=== PATIENT | male | born 1985 | race Hispanic/Latino ===

== ENCOUNTER 2021-12-19 20:17 | Inpatient (IN) | payer BC ==
[~2021-12-19] VITALS: Ht 175.3 cm; Wt 106.5 kg
[2021-12-19] MEDS ORDERED: LORAZEPAM 2 MG/ML 1 ML VIAL IVP ONE (22:30)
[2021-12-19 22:43] LABS: BASOPHILS % (AUTO) 0.4 % (0.0-5.0); EOSINOPHILS % (AUTO) 38.5 % (0.0-8.0); HEMATOCRIT 38.5 % (42-54); LYMPHOCYTES % (AUTO) 7.3 % (21.0-51.0); MEAN CORPUSCULAR HEMOGLOBIN 29.9 pg (27.0-33.0); MEAN CORPUSCULAR HGB CONC 32.2 g/dL (32.0-36.0); MEAN CORPUSCULAR VOLUME 92.8 fL (79-99); MONOCYTES % (AUTO) 2.9 % (3.0-13.0); NEUTROPHILS % (AUTO) 46.5 % (40.0-77.0); PLATELET COUNT (AUTO) 248 K/uL (130-400); RED BLOOD CELL COUNT(AUTO) 4.15 MIL/uL (4.50-6.20); RED CELL DISTRIBUTION WIDTH 13.8 % (11.0-15.5)
[2021-12-19 22:46] LABS: WHITE BLOOD COUNT (AUTO) 43.9 K/uL (4.8-10.8)
[2021-12-19 22:51] LABS: CREATININE 1.1 mg/dL (0.5-1.5)
[2021-12-19 22:51] LABS: APPEARANCE,URINE Clear (CLEAR); BILIRUBIN,URINE Negative (NEGATIVE); COLOR,URINE Dark Yellow (YELLOW); GLUCOSE, URINE (UA) Negative (NEGATIVE); KETONES,URINE 15 mg/dL (NEGATIVE); LEUKOCYTE ESTERASE ,URINE Trace (NEGATIVE); NITRATE,URINE Negative (NEGATIVE); OCCULT BLOOD,URINE Negative (NEGATIVE); PH,URINE 6.5 (5.0-8.0); PROTEIN,URINE Trace mg/dL (NEGATIVE)
[2021-12-19 22:57] LABS: ALBUMIN 2.8 g/dL (3.5-5.0); BILIRUBIN,TOTAL 0.2 mg/dL (0.2-1.0); TOTAL PROTEIN, SERUM 7.4 g/dL (6.0-8.3)
[2021-12-19 23:00] LABS: BACTERIA,URINE Rare /HPF (None Seen); MUCUS,URINE Moderate LPF (None Seen); RBC,URINE None Seen /HPF (0-1); SQUAMOUS EPITHELIAL CELL,UR Few /HPF (0-2)
[2021-12-19] MEDS ORDERED: CEFTRIAXONE 1G VIAL IVP ONE (23:00)
[2021-12-19] MEDS ORDERED: 0.9%NACL 1000ML 2,121 ML IV ONE (23:30)
[2021-12-19] MEDS: CEFTRIAXONE 1G VIAL IV SCH (23:30)
[2021-12-19] MEDS ORDERED: ACETAMINOPHEN 325 MG TAB PO PRN (23:30)
[2021-12-19 23:51] LABS: BAND NEUTROPHILS % (MANUAL) 7 % (0-2); EOSINOPHILS % (MANUAL) 34 % (1-6); LYMPHOCYTES % (MANUAL) 11 % (22-44); MAN.DIFF COMMENT-IMPRESSION MANUAL DIFFERENTIAL; METAMYELOCYTES % 1 % (0-0); MONOCYTES % (MANUAL) 5 % (2-9); PLATELET MORPHOLOGY COMMENT ADEQUATE; REACTIVE LYMPHOCYTES 3 % (0-0); SEGMENTED NEUTROPHILS % 39 % (40-70)
[2021-12-20] VITALS (8 sets, daily range): BP systolic 116–137; BP diastolic 57–83
[2021-12-20] MEDS ORDERED: SODIUM CHLORIDE 3% FOR INHALATION 4 ML/AMP VIAL.NEB IH ONE (00:40)
[2021-12-20] MEDS: DOXYCYCLINE 100MG+NS 250ML 250 ML IV SCH ×3 (00:40→23:16)
[2021-12-20] MEDS: SOLU-MEDROL 125MG VIAL IV SCH ×2 (00:40→12:41)
[2021-12-20] MEDS: IPRATROPIUM/ALBUTEROL SULFATE 3 ML SOLUTION IH SCH ×4 (00:55→18:17)
[2021-12-20 03:18] LABS: BASOPHILS % (AUTO) 0.4 % (0.0-5.0); EOSINOPHILS % (AUTO) 42.2 % (0.0-8.0); HEMATOCRIT 33.4 % (42-54); LYMPHOCYTES % (AUTO) 7.2 % (21.0-51.0); MEAN CORPUSCULAR HEMOGLOBIN 30.6 pg (27.0-33.0); MEAN CORPUSCULAR HGB CONC 33.2 g/dL (32.0-36.0); MONOCYTES % (AUTO) 2.1 % (3.0-13.0); NEUTROPHILS % (AUTO) 43.8 % (40.0-77.0); PLATELET COUNT (AUTO) 214 K/uL (130-400); RED BLOOD CELL COUNT(AUTO) 3.63 MIL/uL (4.50-6.20); RED CELL DISTRIBUTION WIDTH 13.8 % (11.0-15.5)
[2021-12-20 03:20] LABS: CREATININE 0.9 mg/dL (0.5-1.5); MAGNESIUM 2.3 mg/dL (1.80-2.40); PHOSPHORUS 2.4 mg/dL (2.5-4.9); POTASSIUM 3.9 mmol/L (3.5-5.1); WHITE BLOOD COUNT (AUTO) 39.2 K/uL (4.8-10.8)
[2021-12-20 03:34] LABS: INR 1.1 (0.85-1.15); PROTHROMBIN TIME 11.9 SEC (9.6-11.6)
[2021-12-20 03:36] LABS: PARTIAL THROMBOPLASTIN TIME 32.5 SEC (26.3-35.5)
[2021-12-20] MEDS ORDERED: 0.9% NACL 250ML 250 ML ONE ×2 (11:44→23:12)
[2021-12-20] MEDS: FAMOTIDINE 20MG TAB PO SCH ×2 (12:43→20:21)
[2021-12-20] MEDS: ENOXAPARIN SODIUM 40 MG/0.4 ML SYRINGE SQ SCH (12:43)
[2021-12-20] MEDS ORDERED: DIPHENHYDRAMINE HCL 25 MG CAPSULE PO PRN (13:30)
[2021-12-20] MEDS ORDERED: ARTIFICAL TEARS SOL 15 ML OU PRN (16:30)
[2021-12-20 19:34] LABS: HEPATITIS A IGM ANTIBODY Non-Reactive (Negative); HEPATITIS B CORE IGM ANTIBODY Non-Reactive (Negative); HEPATITIS B SURFACE ANTIGEN Non-Reactive (Negative); HEPATITIS C ANTIBODY Non-Reactive (NEGATIVE)
[2021-12-20] MEDS: CEFTRIAXONE 1G VIAL IV SCH (23:16)
[2021-12-20] MEDS ORDERED: HYDROCODONE/ACETAMINOPHEN 10/325 MG TAB PO ONE (23:30)
[2021-12-21] MEDS: IPRATROPIUM/ALBUTEROL SULFATE 3 ML SOLUTION IH SCH ×5 (00:07→23:16)
[2021-12-21] MEDS: DIPHENHYDRAMINE HCL 25 MG CAPSULE PO PRN ×3 (01:13→23:26)
[2021-12-21 03:44] VITALS: BP 121/77
[2021-12-21 08:00] VITALS: BP 128/70
[2021-12-21] MEDS: FAMOTIDINE 20MG TAB PO SCH ×2 (08:11→20:35)
[2021-12-21] MEDS: ENOXAPARIN SODIUM 40 MG/0.4 ML SYRINGE SQ SCH (08:11)
[2021-12-21 09:24] LABS: HEMATOCRIT 34.3 % (42-54); MEAN CORPUSCULAR HEMOGLOBIN 29.7 pg (27.0-33.0); MEAN CORPUSCULAR HGB CONC 32.1 g/dL (32.0-36.0); MEAN CORPUSCULAR VOLUME 92.7 fL (79-99); NUCLEATED RED BLOOD CELLS 0.1 % (0.0-0.19); PLATELET COUNT (AUTO) 188 K/uL (130-400); RED CELL DISTRIBUTION WIDTH 14.3 % (11.0-15.5)
[2021-12-21 09:32] LABS: CREATININE 0.8 mg/dL (0.5-1.5); POTASSIUM 3.3 mmol/L (3.5-5.1)
[2021-12-21 09:35] LABS: WHITE BLOOD COUNT (AUTO) 32.9 K/uL (4.8-10.8)
[2021-12-21 10:48] LABS: EOSINOPHILS % (MANUAL) 24 % (1-6); LYMPHOCYTES % (MANUAL) 16 % (22-44); MAN.DIFF COMMENT-IMPRESSION MANUAL DIFFERENTIAL; MONOCYTES % (MANUAL) 5 % (2-9); SEGMENTED NEUTROPHILS % 55 % (40-70)
[2021-12-21 10:49] LABS: PLATELET MORPHOLOGY COMMENT ADEQUATE
[2021-12-21 12:00] VITALS: BP 134/84
[2021-12-21] MEDS ORDERED: 0.9% NACL 250ML 250 ML ONE ×2 (12:02→22:12)
[2021-12-21] MEDS: DOXYCYCLINE 100MG+NS 250ML 250 ML IV SCH ×2 (12:20→23:16)
[2021-12-21] MEDS ORDERED: POTASSIUM CHLORIDE 10% ELIXIR 20 MEQ/15 ML UDCUP PO PRN (14:30)
[2021-12-21] MEDS ORDERED: POTASSIUM CHLORIDE 20MEQ/100ML 100 ML IV PRN (14:30)
[2021-12-21] MEDS ORDERED: LIDOCAINE HCL-MPF 1% 2ML VIAL IV PRN (14:30)
[2021-12-21] MEDS: KCL 20 MEQ ERTAB PO PRN ×3 (14:50→18:54)
[2021-12-21 16:00] VITALS: BP 126/72
[2021-12-21 20:00] VITALS: BP 128/73
[2021-12-21] MEDS: CEFTRIAXONE 1G VIAL IV SCH (23:16)
[2021-12-22] VITALS: BP 119/85
[2021-12-22 04:00] VITALS: BP 116/72
[2021-12-22 04:27] LABS: HEMATOCRIT 34.7 % (42-54); MEAN CORPUSCULAR HEMOGLOBIN 30.4 pg (27.0-33.0); MEAN CORPUSCULAR HGB CONC 32.3 g/dL (32.0-36.0); NUCLEATED RED BLOOD CELLS 0.1 % (0.0-0.19); RED BLOOD CELL COUNT(AUTO) 3.69 MIL/uL (4.50-6.20)
[2021-12-22 04:29] LABS: WHITE BLOOD COUNT (AUTO) 31.1 K/uL (4.8-10.8)
[2021-12-22 04:42] LABS: CREATININE 0.8 mg/dL (0.5-1.5); POTASSIUM 4.2 mmol/L (3.5-5.1)
[2021-12-22] MEDS: IPRATROPIUM/ALBUTEROL SULFATE 3 ML SOLUTION IH SCH ×4 (06:34→23:23)
[2021-12-22 08:09] VITALS: BP 119/77
[2021-12-22] MEDS: FAMOTIDINE 20MG TAB PO SCH ×2 (08:34→21:16)
[2021-12-22] MEDS: ENOXAPARIN SODIUM 40 MG/0.4 ML SYRINGE SQ SCH (08:35)
[2021-12-22 12:00] VITALS: BP 121/67
[2021-12-22] MEDS ORDERED: 0.9% NACL 250ML 250 ML ONE ×2 (12:02→21:06)
[2021-12-22] MEDS: DOXYCYCLINE 100MG+NS 250ML 250 ML IV SCH ×2 (12:08→23:16)
[2021-12-22 17:50] VITALS: BP 124/65
[2021-12-22 20:00] VITALS: BP 129/77
[2021-12-22] MEDS: CEFTRIAXONE 1G VIAL IV SCH (23:16)
[2021-12-23] VITALS: BP 117/60
[2021-12-23 04:00] VITALS: BP 114/62
[2021-12-23 05:15] LABS: HEMATOCRIT 39.2 % (42-54); MEAN CORPUSCULAR HEMOGLOBIN 29.7 pg (27.0-33.0); MEAN CORPUSCULAR HGB CONC 32.1 g/dL (32.0-36.0); MEAN CORPUSCULAR VOLUME 92.5 fL (79-99); PLATELET COUNT (AUTO) 231 K/uL (130-400); RED BLOOD CELL COUNT(AUTO) 4.24 MIL/uL (4.50-6.20); RED CELL DISTRIBUTION WIDTH 13.7 % (11.0-15.5)
[2021-12-23 05:21] LABS: WHITE BLOOD COUNT (AUTO) 35.6 K/uL (4.8-10.8)
[2021-12-23 05:33] LABS: POTASSIUM 3.9 mmol/L (3.5-5.1)
[2021-12-23 05:52] LABS: BASOPHILS % (MANUAL) 1 % (0-2); EOSINOPHILS % (MANUAL) 54 % (1-6); LYMPHOCYTES % (MANUAL) 15 % (22-44); MAN.DIFF COMMENT-IMPRESSION MANUAL DIFFERENTIAL; MONOCYTES % (MANUAL) 6 % (2-9); SEGMENTED NEUTROPHILS % 24 % (40-70)
[2021-12-23 05:53] LABS: PLATELET MORPHOLOGY COMMENT ADEQUATE
[2021-12-23] MEDS: IPRATROPIUM/ALBUTEROL SULFATE 3 ML SOLUTION IH SCH (06:23)
== END 2021-12-23 06:56 | disposition left against medical advice (07) | DRG 871 ==
LOC: EDH 20:17 → EDHIP 23:30 → 3AH 12-20 01:49
PROVIDERS: ADMIT Hospitalist; ATTEND Hospitalist
DX: A41.9 Sepsis, unspecified organism (principal); J18.9 Pneumonia, unspecified organism; L30.9 Dermatitis, unspecified; F17.210 Nicotine dependence, cigarettes, uncomplicated; F12.90 Cannabis use, unspecified, uncomplicated; Z53.29 Procedure and treatment not carried out because of patient's decision for other reasons; N18.9 Chronic kidney disease, unspecified; Z20.822 Contact with and (suspected) exposure to COVID-19; D72.823 Leukemoid reaction; Z84.1 Family history of disorders of kidney and ureter; E66.9 Obesity, unspecified; Z68.34 Body mass index [BMI] 34.0-34.9, adult
CPT/HCPCS: 36415; 71045; 80048; 80053; 80074; 81001; 81206; 82550; 82728; 83605; 83735; 84100; 84145; 85025; 85027; 85610; 85651; 85730; 86038; 86215; 86235; 86431; 87040; 87071; 87177; 87205; 87536; 87635; 87804; 94640; 94664; G0378; J0696; J1650; J2060; J2930; J3490; J7030; J7050; Q0163